=== PATIENT | male | born 1945 | race Caucasian/White ===

== ENCOUNTER 2016-05-27 06:34 | Day surgery (SDC) | payer MEDICARE, BC ==
[~2016-05-27 06:34] MED LIST: ASPIRIN81 M1 PO; CARAFATE1 G2 PO; CELEXA20 M2 PO; FISH OIL 1,0001 EA10 PO; HYDROCODON-ACE1 EA16 PO; ISOSORBIDE MONO30 M4 PO; LOTENSIN20 M1 PO; MULTIVITAMIN; NORVASC5 M2 PO; PROTONIX40 M2 PO; ROPINIROLE HCL2 M2 PO; TOPROL XL50 M1 PO; TRICOR48 M2 PO
== END 2016-05-27 11:55 ==
LOC: SRG 06:34 → SHSC 06:38 → ORW 09:41 → SHSC 10:35
PROC: 0JH60XZ Insertion of Tunneled Vascular Access Device into Chest Subcutaneous Tissue and Fascia, Open Approach (ICD-10-PCS; principal; 2016-05-27)
PROC: 05H533Z Insertion of Infusion Device into Right Subclavian Vein, Percutaneous Approach (ICD-10-PCS; 2016-05-27)
PROC: B546ZZA Ultrasonography of Right Subclavian Vein, Guidance (ICD-10-PCS; 2016-05-27)
DX: C15.9 Malignant neoplasm of esophagus, unspecified (principal); C78.7 Secondary malignant neoplasm of liver and intrahepatic bile duct; I25.10 Atherosclerotic heart disease of native coronary artery without angina pectoris; I10 Essential (primary) hypertension; E78.5 Hyperlipidemia, unspecified; M19.90 Unspecified osteoarthritis, unspecified site; F41.9 Anxiety disorder, unspecified; F32.9 Major depressive disorder, single episode, unspecified; K21.9 Gastro-esophageal reflux disease without esophagitis; F17.210 Nicotine dependence, cigarettes, uncomplicated; H91.90 Unspecified hearing loss, unspecified ear; G25.81 Restless legs syndrome; Z79.82 Long term (current) use of aspirin; Z79.899 Other long term (current) drug therapy; Z87.11 Personal history of peptic ulcer disease; Z80.0 Family history of malignant neoplasm of digestive organs; Z90.49 Acquired absence of other specified parts of digestive tract; Z95.1 Presence of aortocoronary bypass graft; Z95.0 Presence of cardiac pacemaker; Z98.890 Other specified postprocedural states
CPT/HCPCS: C1788; J0690; J1644; J2250; J7050